=== PATIENT | male | born 1960 | race Caucasian/White ===

== ENCOUNTER 2019-01-14 05:11 | Inpatient (IN) ==
--- NOTE | 2018-12-27 08:33 | Anesthesiology Consultation ---
Date of Service December 27, 2018 Assessment & Plan (1) Encounter for pre-operative examination: Chart Review Chart Review: Acceptable Risk for Surgery and Patient seen in Pre Admission Testing Consults Requested none Teaching & Discussion Pre-Anesthesia Teaching/Discussion Notes: Instructed NPO after midnight before surgery, except medications with 15 cc of water. Medication instructions provided according to the PAT guidelines. History Surgery Operation Date: 01/14/19 09:50 Proposed Procedures p L3-L4-, L4-L5 Laminectomy and Fusion - Irvin Romero DO Height/Weight Height: 5 ft 10 in Weight: 124.8 kg Allergies Allergy/AdvReac Type Severity Reaction Status Date / Time doxycycline Allergy Rash Verified 12/20/18 08:20 Medications Home Medications Medication Instructions Recorded Confirmed Last Taken allopurinol 300 mg PO QAM 12/20/18 12/20/18 Unknown ascorbic acid (vitamin C) [Vitamin 1,000 mg PO QAM 12/20/18 12/20/18 Unknown C With Enedelia Hips] atenolol 100 mg PO QPM 12/20/18 12/20/18 Unknown chlorthalidone 25 mg PO QAM 12/20/18 12/20/18 Unknown cholecalciferol (vitamin D3) 1,000 unit PO QAM 12/20/18 12/20/18 Unknown [Vitamin D3] fenofibrate micronized 134 mg PO QAM 12/20/18 12/20/18 Unknown garlic 1,000 mg PO QAM 12/20/18 12/20/18 Unknown iron 27 mg PO QAM 12/20/18 12/20/18 Unknown losartan 25 mg PO QAM 12/20/18 12/20/18 Unknown meloxicam 15 mg PO DAILY 12/20/18 12/20/18 Unknown pvjej-[id number]-jli-epa-fish oil [Rainier-3 1 tab PO QAM 12/20/18 12/20/18 Unknown Fish Oil] hydrocodone-acetaminophen 1 tab PO Q6H PRN 12/27/18 12/27/18 Unknown Past Medical History Medical History Chronic back pain Gout High cholesterol Hx of Lyme disease 10 yr ago - Had bulleyes and was given abx. Had positive and then negative test. Most recent testing 2 yr ago was negative Hypertension Numbness left foot Past Surgical History Surgical History History of kidney surgery hx conginetal ureteral issue History of tonsillectomy and adenoidectomy Hx of arthroscopy of right knee Hx of hemorrhoidectomy Past Anesthesia History No Hx of Anesthesia Complications and No Family Hx of Anesthesia Complications History of PONV No Motion Sickness Screening History of Motion Sickness: No Social History Smoking Status: Never smoker Do You Dip or Chew Tobacco: Yes (1 can every 2 days. (Advised)) Hx Alcohol Use: Yes alcohol intake frequency: holidays/special occasions only Hx Substance Use: No substance use type: does not use Exercise / Class Metabolic Activity Able to climb FOS. Riding stationary bike 2-3 times per day. Denies CP or SOB. Review of Systems Patient denies chest pain, shortness of breath, dyspnea on exertion, reflux, cough, wheezing, palpitations. +joint pain (back, knee) Physical Exam Vital Signs BP: 146/78 P: 68 R: 18 T: 98.6 SPO2: 99% on RA Constitutional + obese ENMT Mouth: + poor dentition Thyromental Distance: < 3.5 Finger Breadths (3) Mallampati Class: I Neck normal visual inspection, trachea midline and + limited neck extension Respiratory normal respiratory effort Auscultation: lungs clear to auscultation bilaterally Cardiovascular Rate/Rhythm: regular rate and regular rhythm Heart Sounds: no murmur Vessels: no carotid bruit Neurologic moves all extremities Psychiatric Orientation: alert and oriented x 3 Testing Electrocardiogram Date: 12/27/18 Findings: + NSR @ (71) Chest X-Ray Date: 12/27/18 Findings: + NAD Laboratory Results 12/27/18 08:15 12/27/18 08:18 Blood Type O Positive 12/27/18 08:15 Antibody Screen NEGATIVE 12/27/18 08:15 PT 10.8 Seconds (9.0-12.0) 12/27/18 08:15 INR 1.1 (0.9-1.1) 12/27/18 08:15 APTT 25.1 Seconds (21.0-31.0) 12/27/18 08:15
--- NOTE | 2018-12-27 08:41 | PAT Medication Instructions ---
Medication Instructions Date of Service December 27, 2018 Home Medications allopurinol 300 mg PO QAM ascorbic acid (vitamin C) 1,000 mg PO QAM atenolol 100 mg PO QPM chlorthalidone 25 mg PO QAM cholecalciferol (vitamin D3) 1,000 unit PO QAM fenofibrate micronized 134 mg PO QAM garlic 1,000 mg PO QAM iron 27 mg PO QAM losartan 25 mg PO QAM meloxicam 15 mg PO DAILY vsxuo-2f-hib-epa-fish oil 1 tab PO QAM hydrocodone-acetaminophen 1 tab PO Q6H PRN ASK your surgeon for instructions meloxicam 15 mg PO DAILY STOP taking 2 weeks before surgery sxbpw-[id number]-epa-fish oil 1 tab PO QAM DO NOT take the morning of surgery allopurinol 300 mg PO QAM ascorbic acid (vitamin C) 1,000 mg PO QAM chlorthalidone 25 mg PO QAM cholecalciferol (vitamin D3) 1,000 unit PO QAM fenofibrate micronized 134 mg PO QAM garlic 1,000 mg PO QAM iron 27 mg PO QAM losartan 25 mg PO QAM Take morning of surgery With a small sip of water, OTHERWISE NOTHING TO EAT OR DRINK AFTER MIDNIGHT: hydrocodone-acetaminophen 1 tab PO Q6H PRN (stop 4 hours before surgery) Take evening before surgery atenolol 100 mg PO QPM hydrocodone-acetaminophen 1 tab PO Q6H PRN Other Notes If you have any questions please call us at [phone] or [phone] or [phone] or [phone]
--- NOTE | 2018-12-27 09:28 | XRay Report ---
XR chest Pre-admission PA/Lat HISTORY: Preop. COMPARISON: None. FINDINGS: The lungs are clear. Cardiac silhouette is normal in size. No pleural effusions. No pneumot horax. IMPRESSION: No acute process. Electronically signed by: Lucien Conway M.D. 12/27/2018 9:26 AM
[2018-12-27 10:20] LABS: Basophils # (auto) 0.05 K/uL (0-0.2); Basophils % (auto) 0.6 %; Eosinophils # (auto) 0.22 K/uL (0-0.5); Eosinophils % (auto) 2.7 %; Hematocrit (blood only) 41.5 % (42-52); Immature Granulocytes # (auto) 0.03 K/uL (0.00-0.02); Immature Granulocytes % (auto) 0.4 %; Lymphocytes # (auto) 1.46 K/uL (1.2-3.4); Lymphocytes % (auto) 17.6 %; Mean Corpuscular Hgb Conc 33.7 g/dL (32-36); Mean Platelet Volume 10.1 fL (7.4-10.4); Monocytes # (auto) 0.69 K/uL (0.11-0.59); Monocytes % (auto) 8.3 %; Neutrophils # (auto) 5.85 K/uL (1.4-6.5); Neutrophils % (auto) 70.4 %; Platelet Count 258 K/uL (130-400); RDW Coefficient of Variation 13.3 % (11.5-14.5); RDW Standard Deviation 45.3 fL (36.4-46.3); Red Blood Count 4.46 M/uL (4.7-6.1)
[2018-12-27 10:28] LABS: Calcium 9.6 mg/dl (8.5-10.1); Creatinine Clr Calc Pharmacy 84.4 ml/min; Est GFR (African American) 71.5; Est GFR (Non-African American) 61.7; Potassium 3.7 mmol/L (3.5-5.1)
[2018-12-27 10:33] LABS: INR 1.1 (0.9-1.1); Partial Thromboplastin Ratio 0.9; Partial Thromboplastin Time 25.1 Seconds (21.0-31.0); Prothrombin Time 10.8 Seconds (9.0-12.0)
--- NOTE | 2019-01-13 22:04 | History and Physical Report ---
DATE OF ADMISSION: 01/14/2019 CHIEF COMPLAINT: Low back pain, left and right lower extremity, difficulties, pain, weakness, progression of neurological deficit. WORKING DIAGNOSIS: Spinal stenosis of the spine. HISTORY OF PRESENT ILLNESS: Cody is pleasant. He is 58. He has had progressive neurological deficits and pain over the last several years, worsening with decreased reflexes, decreased strength and decreased range of motion. PAST MEDICAL HISTORY: Obesity, hypertension, high cholesterol. PAST SURGICAL HISTORY: Tonsil and adenoids, knee surgery, hemorrhoid. ALLERGIES: CODEINE, DOXYCYCLINE. FAMILY HISTORY: Heart disease. SOCIAL HISTORY: . Three more drinks daily, 10 years chewing tobacco. Moderately active. REVIEW OF SYSTEMS: Twelve system review positive for weight gain. Ear, nose and throat negative. No chest pain, palpitations. No nausea, vomiting. No urgency, frequency. He has joint pain, stiffness, weakness and muscle pain. MEDICATIONS: Atenolol, losartan, vitamin D, allopurinol. PHYSICAL EXAMINATION: GENERAL: Height 5 feet 10 inches, weight 280, in moderate distress at 58. VITAL SIGNS: Blood pressure 130/80, pulse 80, respiration 16. HEENT: Pupils react to light and accommodation. Ear, nose and throat clear. CARDIAC: Normal S1, S2. LUNGS: Clear to auscultation. No rales, rhonchi, wheezing. ABDOMEN: Soft, nontender. MUSCULOSKELETAL: He has back pain, decreased range of motion, decreased reflexes, knee jerk and Achilles, decreased strength and walking intolerance. PLAN: Includes a laminectomy and fusion L3-5, lumbar spine.
[2019-01-14] MEDS ORDERED: LR 15ML/HR IV SCH (06:00)
[2019-01-14] MEDS ORDERED: CEFAZOLIN 3000MG 65 ML IV SCH (06:00)
[2019-01-14] MEDS ORDERED: SODIUM CHLORIDE 0.9% 1,000 ML IV SCH (06:00)
[2019-01-14] MEDS ORDERED: PROMETHAZINE HCL 12.5 MG in SODIUM CHLORIDE 0.9% 50 ML IV PRN (06:52)
[2019-01-14] MEDS ORDERED: ePHEDrine sulfate 50 MG/ML AMP IV PRN (06:52)
[2019-01-14] MEDS ORDERED: ATROPINE SULFATE 0.1 MG/ML 10ML SYR IV PRN (06:52)
[2019-01-14] MEDS ORDERED: PHENYLEPHRINE 100MCG/ML 5ML SYR IV PRN (06:52)
[2019-01-14] MEDS ORDERED: ONDANSETRON INJ 2 MG/ML 2 ML VIAL IV PRN ×2 (06:52→11:27)
[2019-01-14] MEDS ORDERED: ROCURONIUM BROMIDE 10 MG/ML 5 ML VIAL ONE (06:53)
[2019-01-14] MEDS ORDERED: PROPOFOL IV EMULSION 10 MG/ML 20 ML VIAL IV ONE (06:53)
[2019-01-14] MEDS ORDERED: fentaNYL citrate 100 MCG/2 ML VIAL ONE ×2 (06:54→08:01)
[2019-01-14] MEDS ORDERED: MIDAZOLAM HCL 1 MG/ML 2ML VIAL ONE (06:54)
[2019-01-14] MEDS ORDERED: VANCOMYCIN HCL 1000MG/20ML VIAL ONE (06:58)
[2019-01-14] MEDS ORDERED: BUPIVACAINE/EPINEPHRINE 0.5% MPF 1:200,000 30 ML VIAL ONE (06:58)
[2019-01-14] MEDS ORDERED: THROMBIN FOR SOLN 20000 UNIT KIT ONE (06:59)
[2019-01-14] MEDS ORDERED: BACITRACIN INJ 50,000 UNIT VIAL ONE (06:59)
[2019-01-14] MEDS ORDERED: GELATIN SPONGE SZ 100 ONE ×2 (06:59→09:12)
--- NOTE | 2019-01-14 07:18 | History & Physical Bridge Note ---
Date of Service January 14, 2019 History & Physical Bridge Note I have examined the patient, reviewed the History & Physical and in the interval since the performance of the History & Physical I have noted the following changes of clinical significance: no changes noted
[2019-01-14] MEDS ORDERED: DEXAMETHASONE SOD INJ 4 MG/ML VIAL ONE (09:44)
[2019-01-14] MEDS ORDERED: NEOSTIGMINE METHYLSULFATE 5 MG/5 ML SYR ONE (09:44)
[2019-01-14] MEDS ORDERED: GLYCOPYRROLATE 0.2 MG/ML VIAL ONE (09:44)
[2019-01-14] MEDS ORDERED: ONDANSETRON INJ 2 MG/ML 2 ML VIAL ONE (09:44)
[2019-01-14] MEDS ORDERED: FLOSEAL HEMOSTATIC MATRIX 10ML TOP ONE (09:52)
--- NOTE | 2019-01-14 09:52 | Fluoroscopy Report ---
FL spine 1V any level CLINICAL HISTORY: L3-5 LAMINECTOMY/FUSION FLUOROSCOPY TIME: 6 seconds.. FINDINGS: Single fluoroscopic spot image of the lumbar spine demonstrates an L3-L4 posterior decompre ssion and fusion with pedicle screws. The hardware appears intact. IMPRESSION: Fluoroscopy provided for L3-L4 posterior decompression and fusion Electronically signed by: Lucien Conway M.D. 01/14/2019 9:50 AM
--- NOTE | 2019-01-14 10:08 | Post Operative Brief Note ---
Immediate Post Op Note v1 Date of Surgery January 14, 2019 Pre & Post Diagnosis Operation Date: 01/14/19 07:30 Pre-Op Diagnosis: Spinal Stenosis Post-Op Diagnosis: Spinal Stenosis Procedure Operation Date: 01/14/19 07:30 Actual Procedures p L3-L4-, L4-L5 Laminectomy and Fusion, L3-4 Instrumentation (Not Applicable) - Irvin Romero DO Surgeon Irvin Romero DO Assembler Faucets dylan Estimated Blood Loss 450 Findings Consistent with Post-Op Diagnosis Drains Carrero Catheter (16 english) and Hemovac Drain
[2019-01-14] MEDS: fentaNYL citrate 100 MCG/2 ML VIAL IV PRN ×4 (10:21→10:36)
[2019-01-14] MEDS: HYDROmorphone INJ 1 MG/ML SYRINGE IV PRN ×2 (10:41→10:46)
--- NOTE | 2019-01-14 11:11 | Anesthesiology Progress Note ---
Date of Service January 14, 2019 Anesthesia Post Procedure Vital Signs Vital Signs: Temp Pulse Pulse Resp BP Pulse Ox 01/14/19 11:00 64 23 122/68 96 01/14/19 10:50 36.7 C 78 17 138/74 95 01/14/19 10:40 83 12 131/76 95 01/14/19 10:30 77 20 134/75 100 01/14/19 10:20 75 19 138/74 99 01/14/19 10:12 36.1 C L 87 16 135/75 100 01/14/19 05:53 37.1 C 66 20 151/80 H 92 Pain Intensity Back: Pain Intensity: 4 Notes Mental Status: alert / awake / arousable Patient Amnestic to Procedure: Yes Nausea / Vomiting: adequately controlled Pain: adequately controlled Airway Patency, RR, SpO2: stable & adequate BP & HR: stable & adequate Hydration State: stable & adequate Anesthetic Complications: no major complications apparent
[2019-01-14] MEDS ORDERED: HYDROmorphone INJ 0.5 MG/0.5 ML SYR IV PRN (11:27)
[2019-01-14] MEDS ORDERED: MAGNESIUM HYDROXIDE SUSP 30 ML UDC PO PRN (11:27)
[2019-01-14] MEDS ORDERED: LORazepam 0.5 MG/1 ML VIAL IV PRN (11:27)
[2019-01-14] MEDS ORDERED: ACETAMINOPHEN 1,000 MG/100 ML VIAL IV PRN (11:27)
[2019-01-14] MEDS ORDERED: BISACODYL 10 MG SUPP PR PRN (11:27)
--- NOTE | 2019-01-14 11:49 | Operative Report ---
DATE OF OPERATION: 01/14/2019 PREOPERATIVE DIAGNOSIS: Stenosis and instability, lumbar spine. POSTOPERATIVE DIAGNOSIS: Stenosis and instability, lumbar spine. PROCEDURES: Included: 1. Lumbar spine laminectomy, foraminotomy, partial facetectomy, it was a complete laminectomy, L3, L4 and L5 lumbar spine, 3-level laminectomy, foraminotomies, partial facetectomies. 2. Posterior lateral fusion, L3, L4 and L5, a 2-level fusion. 3. Pedicle screw instrumentation L3-L4, single-level pedicle screw instrumentation L3-L4 lumbar spine. COMPLICATIONS: Zero. BLOOD LOSS: 450 mL. SURGEON: Irvin Romero DO PINKING SEWING MACHINE OPERATOR: Mandeep Elizabeth PA-C. IMPLANTS USED: By the [employer]. DESCRIPTION OF PROCEDURE: The patient was taken to the operating room and general intubated anesthetic provided to the patient, placed prone, prepped and draped sterile. We made a skin incision followed by fascial incision. We dissected down to the facet joints, lamina and out over the transverse processes. A deep self-retaining retractor placed. We then began the meticulous dissection of the nerve canal and the dura. We started with a laminectomy 5, up to 4 and up to 3, lamina was removed. All facet joints were preserved. We did undercut the facet joints doing a partial facetectomy. We opened up each and every nerve canal. I felt there was some instability at the level of L3-L4, moderate at L4-L5. I felt that the L3-L4 level could benefit from some instrumentation because of the spondylolisthesis. We safely got pedicles into 3, safely got pedicles into 4, we locked this down. We irrigated thoroughly. We bone grafted out of the transverse processes L3, L4 and L5 lumbar spine. We closed with vancomycin powder, closed over Hemovac drain with 1 Vicryl, 2-0 and staple gun on the skin, sterile dressing applied. The patient returned to PACU stable. No issues or problems. Sponge and needle count correct. I attest to the content of the Intraoperative Record and any orders documented therein. Any exception s are noted below.
[2019-01-14] MEDS: SODIUM CHLORIDE 0.9% 1000ML 1,000 ML IV SCH (12:07)
[2019-01-14] MEDS: HYDROCODONE/ACETAMINOPHEN 10/325 TAB PO PRN (12:07)
[2019-01-14] MEDS ORDERED: HYDROmorphone INJ 1 MG/ML SYRINGE IV PRN (12:20)
[2019-01-14] MEDS ORDERED: ALLOPURINOL 300 MG TAB PO ONE (13:00)
[2019-01-14] MEDS: CHOLECALCIFEROL 1,000 UNITS TAB PO SCH (13:12)
[2019-01-14] MEDS: FENOFIBRATE NANOCRYSTALLIZED 145 MG TABLET PO SCH (13:12)
[2019-01-14] MEDS: OMEGA-3 (PURIFIED FISH OIL) 1 GM CAP PO SCH (13:12)
[2019-01-14] MEDS: LOSARTAN POTASSIUM 25 MG TAB PO SCH (13:12)
[2019-01-14] MEDS: CHLORTHALIDONE 25 MG TAB PO SCH (13:12)
[2019-01-14] MEDS: dexAMETHasone 6 MG in SYRINGE 0 ML IV SCH (16:33)
[2019-01-14] MEDS: CEFAZOLIN 2000MG 2,000 MG/15 ML SYR IV SCH (16:57)
[2019-01-14] MEDS: OXYCODONE HCL IR 5 MG TAB (IMMEDIATE RELEASE) PO PRN ×2 (16:57→21:13)
[2019-01-14] MEDS ORDERED: DOCUSATE SODIUM/SENNA 50/8.6MG TAB PO SCH (21:00)
[2019-01-14] MEDS ORDERED: ATENOLOL 50 MG TABLET PO SCH (21:00)
[2019-01-15] MEDS: CEFAZOLIN 2000MG 2,000 MG/15 ML SYR IV SCH (00:13)
[2019-01-15] MEDS: dexAMETHasone 6 MG in SYRINGE 0 ML IV SCH ×2 (00:14→07:16)
[2019-01-15] MEDS: SODIUM CHLORIDE 0.9% 1000ML 1,000 ML IV SCH (00:14)
[2019-01-15] MEDS: OXYCODONE HCL IR 5 MG TAB (IMMEDIATE RELEASE) PO PRN ×2 (05:56→10:49)
[2019-01-15] MEDS: HYDROCODONE/ACETAMINOPHEN 10/325 TAB PO PRN ×2 (07:16→13:36)
--- NOTE | 2019-01-15 08:07 | Anesthesiology Progress Note ---
Date of Service January 15, 2019 Anesthesia Post Procedure Vital Signs Vital Signs: Temp Pulse Pulse Pulse Resp BP Pulse Ox 01/15/19 07:04 36.7 C 71 19 111/62 92 01/15/19 03:24 36.7 C 77 16 112/66 97 01/15/19 00:00 36.8 C 73 18 123/64 94 01/14/19 19:40 36.8 C 73 18 110/58 L 95 01/14/19 15:00 36.8 C 81 20 112/56 L 97 01/14/19 13:09 71 18 137/64 97 01/14/19 12:18 36.5 C 68 18 128/75 95 01/14/19 12:00 70 18 125/75 95 01/14/19 11:15 36.8 C 75 18 144/76 H 97 01/14/19 11:00 64 23 122/68 96 01/14/19 10:50 36.7 C 78 17 138/74 95 01/14/19 10:40 83 12 131/76 95 01/14/19 10:30 77 20 134/75 100 01/14/19 10:20 75 19 138/74 99 01/14/19 10:12 36.1 C L 87 16 135/75 100 Pain Intensity Back: Pain Intensity: 5 Notes Mental Status: alert / awake / arousable Patient Amnestic to Procedure: Yes Nausea / Vomiting: adequately controlled Pain: adequately controlled Airway Patency, RR, SpO2: stable & adequate BP & HR: stable & adequate Hydration State: stable & adequate Anesthetic Complications: no major complications apparent and Pt Satisfied with anesthetic care
--- NOTE | 2019-01-15 08:09 | Discharge Summary ---
DATE OF DISCHARGE: 01/15/19 Mr. Lepe was admitted on the , discharged on the . Improved, stable condition. He is alert, oriented, no chest pain, shortness of breath. No issues whatsoever. Up and ambulatory and taking p.o. He had an uneventful course. DISPOSITION: He was discharged home in improved stable condition. He has medications at home. He has a walker at home. He has a cane at home and a followup appointment. Instructions given to him on the chart.
[2019-01-15] MEDS: LOSARTAN POTASSIUM 25 MG TAB PO SCH (08:21)
[2019-01-15] MEDS: CHOLECALCIFEROL 1,000 UNITS TAB PO SCH (08:21)
[2019-01-15] MEDS: OMEGA-3 (PURIFIED FISH OIL) 1 GM CAP PO SCH (08:21)
[2019-01-15] MEDS: CHLORTHALIDONE 25 MG TAB PO SCH (08:21)
[2019-01-15] MEDS: FENOFIBRATE NANOCRYSTALLIZED 145 MG TABLET PO SCH (08:21)
[2019-01-15] MEDS ORDERED: NON-FORMULARY MEDICATION (Garlic 1,000 MG) PO SCH (09:00)
[2019-01-15] MEDS ORDERED: IRON 27 MG PO SCH (09:00)
[2019-01-15] MEDS ORDERED: ASCORBIC ACID 500 MG TAB PO SCH (09:00)
[2019-01-15] MEDS ORDERED: ALLOPURINOL 300 MG TAB PO SCH (09:00)
== END 2019-01-15 13:54 | disposition home or self-care (01) | DRG 460 ==
LOC: ASU 05:11 → 3E 10:16